=== PATIENT | male | born 1965 | race Caucasian/White ===

== ENCOUNTER 2019-11-13 05:57 | Day surgery (SDC) | payer BC ==
[2019-11-13] MEDS ORDERED: Lactated Ringers 1,000 ML IV SCH (06:30)
[2019-11-13] MEDS ORDERED: Povidone-Iodine 10% Soln 118.25 ML Bottle ONE (06:37)
[2019-11-13] MEDS: Nozin Nasal Sanitizer NASBOTH SCH ×2 (07:06→20:00)
[2019-11-13] MEDS ORDERED: fentaNYL 250 MCG/5 ML SDV ONE (07:25)
[2019-11-13] MEDS ORDERED: Dexamethasone 4 MG/ML SDV ONE (07:26)
[2019-11-13] MEDS ORDERED: Ondansetron 4 MG/2 ML SDV ONE (07:26)
[2019-11-13] MEDS ORDERED: Propofol 200 MG/20 ML SDV ONE (07:26)
[2019-11-13] MEDS ORDERED: Neostigmine Methylsulfate 1 MG/ML 5 ML Syringe ONE (07:26)
[2019-11-13] MEDS ORDERED: Rocuronium 50 MG/5 ML Vial ONE (07:26)
[2019-11-13] MEDS ORDERED: Glycopyrrolate 0.2 MG/ML 5 ML MDV ONE (07:26)
[2019-11-13] MEDS ORDERED: Bupivacaine 0.5% 30 ML SDV ONE (07:31)
[2019-11-13] MEDS ORDERED: ceFAZolin 2 GM in Premix Bag 1 BAG IV ONE (08:00)
[2019-11-13] MEDS ORDERED: Succinylcholine 200 MG/10 ML MDV ONE (08:04)
[2019-11-13] MEDS ORDERED: Morphine 4 MG/ML Syringe IVPUSH PRN (10:10)
[2019-11-13] MEDS ORDERED: Ondansetron 4 MG/2 ML SDV IVPUSH PRN (10:10)
[2019-11-13] MEDS ORDERED: Sodium Chloride 0.9% 1,000 ML IV SCH (10:15)
[2019-11-13] MEDS ORDERED: INFLIXIMAB 100 MG IV SCH (10:30)
[2019-11-13] MEDS ORDERED: Morphine 2 MG/ML SYRINGE IVPUSH ONE (10:45)
[2019-11-13] MEDS: Acetaminophen/oxyCODONE 325-5 MG Tab PO PRN (11:37)
[2019-11-13] MEDS: Acetaminophen/HYDROcodone 325-5 MG Tab PO PRN ×2 (15:46→21:28)
[2019-11-13] MEDS ORDERED: ceFAZolin 1 GM in Premix Bag 1 BAG IV SCH (16:00)
[2019-11-13] MEDS: ceFAZolin 1 GM in Premix Bag 1 BAG IV SCH (16:37)
[2019-11-14] MEDS: Morphine 2 MG/ML SYRINGE IVPUSH PRN ×2 (00:39→03:58)
[2019-11-14] MEDS: ceFAZolin 1 GM in Premix Bag 1 BAG IV SCH (00:50)
[2019-11-14] MEDS: Acetaminophen/HYDROcodone 325-5 MG Tab PO PRN ×2 (01:34→05:31)
[2019-11-14] MEDS ORDERED: Cyclobenzaprine 10 MG Tab PO PRN (06:21)
[2019-11-14] MEDS: Acetaminophen/oxyCODONE 325-5 MG Tab PO PRN ×2 (08:35→12:14)
[2019-11-14] MEDS: Nozin Nasal Sanitizer NASBOTH SCH (08:39)
[2019-11-14 09:02] VITALS: BP 113/61; PULSE 96
--- NOTE | 2019-11-14 10:21 | CR ---
Shoulder 1V Rt CLINICAL HISTORY: Postop FINDINGS: Patient has had recent placement of a right humeral head prosthesis component appears well seated. Impression: Status post recent right shoulder arthroplasty
--- NOTE | 2019-11-26 09:58 | OR ---
DATE OF PROCEDURE: 11/13/2019 SURGEON: Morales Velez MD PREOPERATIVE DIAGNOSIS: Osteoarthritis, right shoulder. POSTOPERATIVE DIAGNOSES: 1. Osteoarthritis, right shoulder. 2. Near-complete biceps tendon rupture. PROCEDURES: Right total shoulder arthroplasty using Arthrosurface OVO components and 2 biceps tenotomy. ANESTHESIA: General with interscalene block. INDICATIONS: Jose Juan is a 53-year-old gentleman with a history of progressive right shoulder pain for the past couple of years. It has gotten significantly worse within the past 6 months. He has had extensive conservative treatment including intra- articular injections. He now presents for right shoulder arthroplasty. Risks, benefits, potential complications of the procedure were discussed. PROCEDURE IN DETAIL: After adequate anesthesia was obtained, the patient was placed in a modified beach-chair position. Right shoulder and arm were then prepped and draped in a sterile fashion. Anterior incision was made and carried down through the subcutaneous tissues and hemostasis obtained with electrocautery. Deltopectoral interval was identified with the cephalic vein retracted laterally with the deltoid. Clavipectoral fascia was divided and a self-retaining retractor was placed beneath the conjoined tendon and the deltoid. Subscapularis was then divided approximately 1 cm from its insertion and taken down through the capsule and retracted medially. Capsule was then released down along the inferior neck revealing a large inferior osteophyte. This was removed with a combination of rongeur and osteotome. Release continued until the arm could be externally rotated exposing the humeral head. This was sized to a 52, and the guide for the central pin was tapped into position. Guide pin was then placed. The guide was removed. A central drill was placed over the guide pin and the reamer was then placed over this removing the articular surface and subchondral bone. The 2nd planing reamer was then utilized. A small remaining bone plug centrally was removed with an osteotome. Humeral head was then retracted posteriorly. Glenoid was inspected which showed central articular cartilage loss. The labrum was essentially intact. Biceps tendon showed near- complete rupture near the bicipital groove and the biceps was then transected completing a tenotomy. A small stub was excised from the glenoid. Glenoid guide was positioned over the central inferior aspect and a guide pin was placed. Reamer was then placed over this, creating circular depression for the glenoid polyethylene. Guide was replaced and the central peg hole was drilled. Additional bone cement fixation channels were created with an awl. The trial polyethylene was placed with a flush fit. Glenoid was then irrigated. Bone surface was dried and bone cement was then packed into the defect. Glenoid component was placed and excess cement was removed and the component was held with a direct compression until the cement cured. Glenoid was irrigated. Attention was returned to the humerus where the central guide was again placed and the central screw was secured to the appropriate depth. The oval HemiCAP was then tapped into position with excellent coverage. Humerus was reduced and taken through range of motion. He had good stability with approximately 50% translation. Shoulder was irrigated. Subscapularis was then closed with a combination of #2 Ethibond using locking Lg-Taye sutures and oversewn with a 0 Vicryl running suture. Arm was taken through range of motion once this was completed and showed external rotation easily to 30 degrees without significant tension and could be taken overhead to 160 degrees. Deltopectoral interval was allowed to fall back into position. No significant bleeding was noted. Skin was closed with 2-0 Vicryl and a running 3-0 Monocryl. Steri-Strips were applied and sterile dressing was placed. The patient tolerated the procedure well. There were no complications. He was taken from the operating room in stable condition. Morales Velez MD /[id number] JOSE
== END 2019-11-14 12:40 | disposition home or self-care (01) ==
LOC: JP.SDS 05:57 → JP.MS 10:11 → JP.SDS 11-14 12:40
PROVIDERS: ATTEND Specialist
DX: M19.011 Primary osteoarthritis, right shoulder (principal); S46.212A Strain of muscle, fascia and tendon of other parts of biceps, left arm, initial encounter; X58.XXXA Exposure to other specified factors, initial encounter
CPT/HCPCS: 23405; 23472; 73020; 87635; 97161; 97165; 97530; 97535; A9270; C1713; C1776; J0330; J0690; J1100; J2270; J2704; J2710; J3010; J3490; J7120; J2405; U0002

== ENCOUNTER 2020-06-26 07:05 | Day surgery (SDC) | payer BC ==
[2020-06-26] MEDS ORDERED: Midazolam 1 MG/ML 2 ML SDV ONE (08:01)
[2020-06-26] MEDS ORDERED: Propofol 200 MG/20 ML SDV ONE (08:01)
[2020-06-26] MEDS ORDERED: fentaNYL 100 MCG/2 ML SDV ONE (08:01)
[2020-06-26] MEDS ORDERED: Dextrose 5%-Lactated Ringers 1,000 ML IV SCH (08:15)
[2020-06-26 10:31] VITALS: BP 116/74; PULSE 86
--- NOTE | 2020-07-05 11:25 | OR ---
DATE OF PROCEDURE: 06/26/2020 SURGEON: Camron Philippe MD PREOPERATIVE DIAGNOSES: 1. History of Crohn's disease. 2. History of anal fissure (healed). POSTOPERATIVE DIAGNOSES: 1. History of Crohn's disease. 2. History of anal fissure (healed). 3. No pathologic findings on today's colonoscopy. OPERATIVE PROCEDURE: Flexible colonoscopy. ANESTHESIA: IV sedation. INDICATIONS FOR PROCEDURE: A 54-year-old male presenting for a followup colonoscopy, does have a history of Crohn's disease which appears to be at this point well controlled on Remicade infusions every 2 months. He does have a history of anal fissure which by history has healed. He does not have any symptoms suggestive of ongoing anorectal disease related to his Crohn's disease at this time. The plan is to proceed with a colonoscopy with biopsies and/or polypectomy as indicated. Potential risks including bleeding and perforation were discussed and the patient wishes to proceed. DETAILS OF PROCEDURE: The patient was taken to the operating room and placed in a left lateral decubitus position. IV sedation was administered after which the initial digital rectal exam found a linear scar posteriorly consistent with a healed fissure. The mucosa over this was entirely intact, i.e. this remained healed at this point. The scope was then placed in the rectum. Retroflexion revealed no additional pathology. The scope was eventually passed to the cecum. The prep was quite good. There was only a small amount of liquid and some scattered solid stool present. A vast majority of the colonic surfaces was visualized. The scope was then passed a few centimeters through the ileocecal valve and the distal small bowel which likewise appeared to be normal. Through the exam, there were no areas of diverticulosis, no areas of colitis, and no areas of polyps or other signs of neoplasia. The mucosa overall was entirely soft and normal with no areas of thickening and nothing suspicious for either active Crohn's disease or neoplastic changes. The scope was then withdrawn, the above findings reconfirmed, and the procedure then concluded. Given the patient's history of the Crohn's disease, we would recommended repeat colonoscopy in 2 years. Crohn's disease has a slightly higher risk than normal of colon carcinoma, although less than ulcerative colitis, but reasonably close surveillance would be warranted. Camron Philippe MD /[id number]
== END 2020-06-26 10:42 | disposition home or self-care (01) ==
LOC: JP.SDS 07:05
PROVIDERS: ATTEND Surgery
DX: Z12.11 Encounter for screening for malignant neoplasm of colon (principal); Z87.19 Personal history of other diseases of the digestive system
CPT/HCPCS: J2250; J2704; J3010; J7121

== ENCOUNTER 2021-09-24 17:21 | Emergency (ER) | payer BC ==
[2021-09-24 17:39] VITALS: BP 132/76; PULSE 85
== END 2021-09-24 18:33 | disposition home or self-care (01) ==
LOC: JP.ED 17:21
DX: S01.25XA Open bite of nose, initial encounter (principal); Z86.73 Personal history of transient ischemic attack (TIA), and cerebral infarction without residual deficits; W54.0XXA Bitten by dog, initial encounter
CPT/HCPCS: 12011; 99281; 99283-25

== ENCOUNTER 2021-12-09 05:21 | Inpatient (IN) | payer BC ==
[2021-12-09] MEDS ORDERED: HYDROmorphone 0.5 MG/0.5 ML Syringe IVPUSH ONE ×2 (05:53→07:16)
[2021-12-09] MEDS ORDERED: Ondansetron 4 MG/2 ML SDV IVPUSH ONE (05:53)
[2021-12-09] MEDS ORDERED: Sodium Chloride 0.9% 1,000 ML IV SCH ×2 (06:00→13:58)
[2021-12-09 06:09] LABS: ESTIMATED GFR 71 mL/min (>60)
[2021-12-09] MEDS ORDERED: Sodium Chloride 0.9% 10 ML Syringe FLUSH ONE (06:33)
[2021-12-09] MEDS ORDERED: Sodium Chloride 0.9% 50 ML IV SCH (06:45)
[2021-12-09] MEDS ORDERED: Iopamidol 612 MG/ML 100 ML Bottle IV SCH (06:45)
[2021-12-09] MEDS ORDERED: fentaNYL 100 MCG/2 ML SDV IVPUSH ONE (09:37)
[2021-12-09] MEDS ORDERED: LORazepam 2 MG/ML SDV IVPUSH ONE (11:41)
[2021-12-09] MEDS ORDERED: Sodium Chloride 0.9% 10 ML Syringe FLUSH PRN (13:58)
[2021-12-09] MEDS ORDERED: Ondansetron 4 MG/2 ML SDV IV PRN (13:58)
[2021-12-09] MEDS: HYDROmorphone 0.5 MG/0.5 ML Syringe IVPUSH PRN (14:36)
[2021-12-09] MEDS: methylPREDNISolone Sodium Succinate 125 MG/2 ML SDV IVPUSH SCH (15:58)
[2021-12-09] MEDS: Pantoprazole 40 MG Vial IVPUSH SCH (15:59)
[2021-12-09] MEDS: Meropenem 1 GM in Sodium Chloride 0.9% 100 ML IV SCH (16:00)
[2021-12-09] MEDS: Enoxaparin 40 MG/0.4 ML Syringe SUBCUT SCH (16:00)
[2021-12-09] MEDS ORDERED: Benzocaine/Cetylpyridinium/Menthol Lozenge MUCMEM PRN (19:16)
[2021-12-09] MEDS ORDERED: Melatonin 3 MG Tab PO PRN (20:52)
[2021-12-10] MEDS: Meropenem 1 GM in Sodium Chloride 0.9% 100 ML IV SCH ×4 (00:37→23:27)
[2021-12-10] MEDS: HYDROmorphone 0.5 MG/0.5 ML Syringe IVPUSH PRN ×2 (08:06→11:12)
[2021-12-10] MEDS: HYDROmorphone 1 MG/ML Syringe IVPUSH PRN ×3 (13:12→19:27)
[2021-12-10] MEDS: Pantoprazole 40 MG Vial IVPUSH SCH (15:45)
[2021-12-10] MEDS: methylPREDNISolone Sodium Succinate 125 MG/2 ML SDV IVPUSH SCH (15:50)
[2021-12-10] MEDS: Enoxaparin 40 MG/0.4 ML Syringe SUBCUT SCH (15:58)
[2021-12-10] MEDS: Sodium Chloride 0.9% 1,000 ML IV SCH (19:21)
[2021-12-11] MEDS: HYDROmorphone 1 MG/ML Syringe IVPUSH PRN ×3 (03:01→12:06)
[2021-12-11] MEDS: Meropenem 1 GM in Sodium Chloride 0.9% 100 ML IV SCH ×2 (07:35→15:24)
[2021-12-11] MEDS: Sodium Chloride 0.9% 1,000 ML IV SCH (09:41)
[2021-12-11] MEDS: Enoxaparin 40 MG/0.4 ML Syringe SUBCUT SCH (15:24)
[2021-12-11] MEDS: methylPREDNISolone Sodium Succinate 125 MG/2 ML SDV IVPUSH SCH (15:24)
[2021-12-11] MEDS: Pantoprazole 40 MG Vial IVPUSH SCH (15:24)
[2021-12-11] MEDS ORDERED: Amoxicillin/Clavulanate K 875-125 MG Tab PO ONE (21:52)
[2021-12-12 08:58] VITALS: BP 140/72; PULSE 85
[2021-12-12] MEDS ORDERED: Amoxicillin/Clavulanate K 875-125 MG Tab PO SCH (09:00)
[2021-12-12] MEDS ORDERED: predniSONE 20 MG Tab PO SCH (09:00)
== END 2021-12-12 14:43 | disposition home or self-care (01) | DRG 245 ==
LOC: JP.ED 05:21 → JP.MS 11:01 → UNDOADMIN 11:01
PROVIDERS: ADMIT Hospitalist; ATTEND Hospitalist
PROC: 0D9670Z Drainage of Stomach with Drainage Device, Via Natural or Artificial Opening (ICD-10-PCS; principal; 2021-12-09)
DX: K50.012 Crohn's disease of small intestine with intestinal obstruction (principal); U07.1 COVID-19; H54.7 Unspecified visual loss; K56.600 Partial intestinal obstruction, unspecified as to cause; M54.9 Dorsalgia, unspecified; G89.29 Other chronic pain; Z96.611 Presence of right artificial shoulder joint; Z86.73 Personal history of transient ischemic attack (TIA), and cerebral infarction without residual deficits; Z79.899 Other long term (current) drug therapy; Z90.89 Acquired absence of other organs
CPT/HCPCS: 36415; 74018; 74018-26; 74019; 74019-26; 74021; 74021-26; 74177; 80048; 80053; 81001; 83735; 85025; 96361; 96374; 96375; 96376; 99222; 99232; 99238; 99284; 99285-25; A9270-GY; C9113; J1170; J1650; J2060; J2185; J2405; J2930; J3010; J3490; J7030; J7512; Q9967; U0002

== ENCOUNTER 2023-04-10 05:24 | Emergency (ER) | payer BC ==
[2023-04-10] MEDS ORDERED: Sodium Chloride 0.9% 10 ML Syringe FLUSH PRN (05:36)
[2023-04-10] MEDS ORDERED: Ketorolac 15 MG/ML SDV IVPUSH ONE (05:36)
[2023-04-10] MEDS ORDERED: Sodium Chloride 0.9% 1,000 ML IV ONE (05:37)
[2023-04-10] MEDS ORDERED: Naloxone 0.4 MG/ML SDV IVPUSH PRN (05:39)
[2023-04-10] MEDS ORDERED: Ondansetron 4 MG/2 ML SDV IVPUSH PRN (05:39)
[2023-04-10] MEDS ORDERED: HYDROmorphone 1 MG/ML Syringe IVPUSH ONE (05:39)
[2023-04-10 05:43] LABS: BASOPHILS ABSOLUTE AUTO 0.03 K/uL (0.00-0.10); BASOPHILS PERCENT AUTO 0.3 % (0.1-1.3); EOSINOPHILS ABSOLUTE AUTO 0.22 K/uL (0.00-0.40); EOSINOPHILS PERCENT AUTO 2.3 % (0.0-5.4); HEMATOCRIT 41.8 % (38.4-49.7); IMMATURE GRAN ABSOLUTE AUTO 0.03 K/uL (0.00-0.23); IMMATURE GRAN PERCENT AUTO 0.3 % (0.0-0.7); LYMPHOCYTES ABSOLUTE AUTO 2.45 K/uL (0.8-3.3); LYMPHOCYTES PERCENT AUTO 26.1 % (11.4-47.7); MEAN CORPUSCULAR HEMOGLOBIN 28.5 pg (31.6-35.5); MEAN CORPUSCULAR HGB CONC 33.5 g/dL (31.6-35.5); MONOCYTES PERCENT AUTO 8.5 % (3.3-12.6); NEUTROPHILS ABSOLUTE AUTO 5.85 K/uL (1.0-7.6); NEUTROPHILS PERCENT AUTO 62.5 % (40.0-78.1); PLATELET COUNT,PLT 325 K/uL (130-375); RED BLOOD CELL COUNT 4.92 M/uL (4.14-5.76); WHITE BLOOD CELL COUNT,WBC 9.4 K/uL (3.2-11.0)
[2023-04-10 05:56] LABS: ANION GAP 10.7 mmol/L (5.0-14.0); CALCIUM 8.6 mg/dL (8.5-10.1); CREATININE 1.3 mg/dL (0.8-1.3); EST CRCL DRUG DOSING (CG) 64.73 mL/min; POTASSIUM,K 3.7 mmol/L (3.6-5.2)
[2023-04-10] MEDS ORDERED: Iopamidol 612 MG/ML 100 ML Bottle IV STA (05:58)
[2023-04-10] MEDS ORDERED: Sodium Chloride 0.9% 50 ML IV STA (05:59)
[2023-04-10 07:45] VITALS: BP 117/66; PULSE 79
== END 2023-04-10 07:42 | disposition home or self-care (01) ==
LOC: JP.ED 05:24
DX: K50.012 Crohn's disease of small intestine with intestinal obstruction (principal); K56.609 Unspecified intestinal obstruction, unspecified as to partial versus complete obstruction; Z86.73 Personal history of transient ischemic attack (TIA), and cerebral infarction without residual deficits; Z79.899 Other long term (current) drug therapy
CPT/HCPCS: 36415; 74177; 80048; 85025; 86140; 96361; 96374; 96375; 99284; 99284-25; J1170; J1885; J2405; J3490; J7030; Q9967